=== PATIENT | male | born 1940 | race Caucasian/White ===

== ENCOUNTER 2016-11-08 01:57 | Emergency (ER) | payer MEDICARE, OTHER ==
[2016-11-08 01:57] LABS: BASOPHILS 0.5 %; BASOPHILS ABSOLUTE 0.06 10/3/uL (0.0-0.16); EOSINOPHILS 21.1 %; EOSINOPHILS ABSOLUTE 2.34 10/3/uL (0.0-0.53); ER CBC TAT 0 Hrs 03 Mins; HEMATOCRIT 44.1 % (40.0-51.0); HEMOGLOBIN 15.1 g/dL (13.6-17.8); IMMATURE GRANULOCYTES 1.1 %; LYMPHOCYTES 29.2 %; LYMPHOCYTES ABSOLUTE 3.23 10/3/uL (0.67-4.30); MEAN CORPUS HGB CONC 34.2 g/dL (32.0-36.0); MEAN CORPUSCULAR HEMOGLOB 30.9 pg (26.0-34.0); MEAN CORPUSCULAR VOLUME 90.2 fL (80-100); MEAN PLATELET VOLUME 9.6 fL (9.2-13.0); MONOCYTES 8.4 %; MONOCYTES ABSOLUTE 0.93 10/3/uL (0.21-1.20); NEUTROPHILS 39.7 %; NEUTROPHILS ABSOLUTE 4.39 10/3/uL (2.02-8.40); PLATELET COUNT 206 10/3/uL (150-400); RBC DISTRIBUTION WIDTH 12.9 % (12.0-16.0); RED CELL COUNT 4.89 10/6/uL (4.7-6.1); WHITE BLOOD CELLS 11.1 10/3/uL (4.5-10.5)
[~2016-11-08 01:57] MED LIST: ASAB PO; CELEXA40 MG PO; CLARIT10 PO; FISH-EPA1000 MG PO; HALF81 PO; MONODOX100 MG PO; PR25 PO; PRAV10 PO; PRILO PO; PRINZIDE1 TA1 PO; PROTONIX20 MG PO; PT UNABLE TO RECALL; RANITIDINE300 MG PO; SENTAB PO; SYMBICORT 160/41 INH INH; TAMBOCOR PO; TAMBOCOR150 MG PO; VENTOLIN HFA INH; VITC500 PO; ZESTORETIC PO; ZOCOR20 PO
[2016-11-08 01:58] LABS: IMMATURE GRANULOCYTES ABSOLUTE 0.12 10/3/uL (0.0-0.11); MANUAL DIFF NO %
[2016-11-08 02:06] LABS: INTERNATIONAL NORMAL RATI 1.1 UNITS (-); PARTIAL THROMBO TIME 40.9 SEC (22.5-37.2); PROTIME (NOT ORD) 13.6 SEC (12.0-14.5)
[2016-11-08 02:17] LABS: BAND NEUTROPHILS 2 %; EOSINOPHILS 12 %; EOSINOPHILS ABSOLUTE (CALC) 1.33 10/3/uL (0.0-0.53); ER DIFF TAT 0 Hrs 23 Mins; LYMPHOCYTES 30 %; LYMPHOCYTES ABSOLUTE (CALC) 3.33 10/3/uL (0.67-4.30); MONOCYTES 6 %; MONOCYTES ABSOLUTE (CALC) 0.67 10/3/uL (0.21-1.20); NEUTROPHILS ABSOLUTE (CALC) 5.77 10/3/uL (2.02-8.40); PLATELET ESTIMATE ADQ (ADEQUATE); SEGMENTED NEUTROPHIL (0) 50 %; SPHEROCYTES OCC (0-2/OIF); TEARDROP SHAPED RBCS OCC (0-2/OIF); TOTAL NUCLEATED CELLS 100
[2016-11-08 02:21] LABS: BUN (BLOOD UREA NITROGEN) 18 MG/DL (6-23); CALCIUM, SERUM 8.9 MG/DL (8.5-10.4); CHEST PAIN PROFILE TAT 0 Hrs 27 Mins; CHLORIDE, SERUM 104 MMOL/L (96-112); CO2 (CARBON DIOXIDE) 28 MMOL/L (24-34); CREATININE 1.01 MG/DL (0.70-1.30); GFR AFRICAN AMERICAN 85 ML/MIN (>=60); GFR NON AFRICAN AMERICAN 73 ML/MIN (>=60); GLUCOSE, SERUM 87 MG/DL (60-99); POTASSIUM, SERUM 3.7 MMOL/L (3.5-5.3); SODIUM, SERUM 144 MMOL/L (135-148); TROPONIN I <0.02 NG/ML (<0.05)
[2016-12-11] MEDS ORDERED: FLECAINIDE100 MG PO (13:41)
[2016-12-11] MEDS ORDERED: PRILO PO (13:45)
[2016-12-11] MEDS ORDERED: ASAB PO (13:46)
== END 2016-11-08 03:08 | disposition home or self-care (01) ==
LOC: ER 01:57
PROVIDERS: Specialist
DX: R00.8 Other abnormalities of heart beat (principal); I10 Essential (primary) hypertension; F32.9 Major depressive disorder, single episode, unspecified; Z85.46 Personal history of malignant neoplasm of prostate
CPT/HCPCS: 71010; 80048; 83735; 84443; 84484; 85025; 85610; 85730; 93005; 99285

== ENCOUNTER 2016-12-16 12:58 | Day surgery (SDC) | payer MEDICARE, OTHER ==
--- NOTE | ~2016-12-16 | EGD ---
EGD REPORT [facility] [address] [place] [address] NAME: DAVID JOE : [birth year] STATUS : REG [facility] [place] PAT#: [id number] AGE: 76 ADM/REG DATE : 12/16/16 MR#: [id number] REPORT SERV DATE: 12/16/16 DICTATED BY: JOYCE CHESTER DATE: 12/16/16 REPORT STATUS : Draft TRANSCRIBED BY: [facility] DATE: 12/16/16 [facility] Patient Name: David Joe Date of : 1940 Attending MD: JOYCE CHESTER MD Procedure Date No Time: 12/16/2016 Procedure: Colonoscopy Indications: Follow-up for history of adenomatous polyps in the colon, Follow-up of diverticulitis, Last colonoscopy: April 2012 Referring MD: MYNOR WILLARD MD Medicines: Propofol per Anesthesia Complications: No immediate complications. Estimated blood loss: None. Procedure: Pre-Anesthesia Assessment: - After reviewing the risks and benefits, the patient was deemed in satisfactory condition to undergo the procedure. - Prior to the procedure, a History and Physical was performed, and patient medications and allergies were reviewed. The patient's tolerance of previous anesthesia was also reviewed. The risks and benefits of the procedure and the sedation options and risks were discussed with the patient. All questions were answered, and informed consent was obtained. Prior Anticoagulants: The patient has taken no previous anticoagulant or antiplatelet agents. ASA Grade Assessment: III - A patient with severe systemic disease. After reviewing the risks and benefits, the patient was deemed in satisfactory condition to undergo the procedure. After I obtained informed consent, the scope was passed under direct vision. Throughout the procedure, the patient's blood pressure, pulse, and oxygen saturations were monitored continuously. The CF [id number] was introduced through the anus and advanced to the cecum, identified by appendiceal orifice and ileocecal valve. The colonoscopy was somewhat difficult due to significant looping. Successful completion of the procedure was aided by applying abdominal pressure. The ileocecal valve and appendiceal orifice were photographed. The patient tolerated the procedure well. The quality of the bowel preparation was adequate to identify polyps 6 mm and larger in size after copious lavage. The bowel preparation used was an extended prep with polyethylene glycol (PEG) and magnesium citrate. EGD REPORT [address] [address] NAME: DAVID JOE : [birth year] STATUS : REG [facility]#: [id number] AGE: 76 ADM/REG DATE : 12/16/16 MR#: [id number] REPORT SERV DATE: 12/16/16 DICTATED BY: JOYCE CHESTER DATE: 12/16/16 REPORT STATUS : Draft TRANSCRIBED BY: [employer] DATE: 12/16/16 Scope withdrawal time was nearly 8 minutes. Findings: The perianal and digital rectal examinations were normal. Pertinent negatives include normal sphincter tone. Non-bleeding internal hemorrhoids were found during retroflexion and were small and Grade I (internal hemorrhoids that do not prolapse). Multiple small-mouthed diverticula were found in the entire colon. Diffuse melanosis was found in the entire colon. A sessile polyp was found in the descending colon. The polyp was 6 mm in size. The polyp was removed with a cold snare. Resection and retrieval were complete. Estimated blood loss: none. The exam was otherwise without abnormality. Impression: - Non-bleeding internal hemorrhoids. - Moderate diverticulosis in the entire examined colon. - Melanosis in the colon. - One 6 mm polyp in the descending colon. Resected and retrieved. - The examination was otherwise normal. - Irritable bowel syndrome with constipation. Recommendation: - Discharge patient to home (ambulatory). - Resume previous diet. - Resume regular medications including Miralax. - Follow-up pathology. - Repeat colonoscopy for polyp surveillance in 5 years with an extended bowel prep. - Patient has a contact number available for emergencies. The signs and symptoms of potential delayed complications were discussed with the patient. Return to normal activities tomorrow. Written discharge instructions were provided to the patient. Procedure Code(s): --- Professional --- 52012, Colonoscopy, flexible, proximal to splenic flexure; with removal of tumor(s), polyp(s), or other lesion(s) by snare technique Diagnosis Code(s): --- Professional --- K64.0, First degree hemorrhoids K58.9, Irritable bowel syndrome without diarrhea K57.30, Diverticulosis of large intestine without perforation or abscess without bleeding K63.89, Other specified diseases of intestine D12.4, Benign neoplasm of descending colon Z86.010, Personal history of colonic polyps K57.32, Diverticulitis of large intestine without EGD REPORT [facility] [address] [address] NAME: DAVID JOE : [birth year] STATUS : REG [facility]#: [id number] AGE: 76 ADM/REG DATE : 12/16/16 MR#: [id number] REPORT SERV DATE: 12/16/16 DICTATED BY: JOYCE CHESTER DATE: 12/16/16 REPORT STATUS : Draft TRANSCRIBED BY: [employer] DATE: 12/16/16 perforation or abscess without bleeding CPT copyright 2013 [employer]. All rights reserved. The codes documented in this report are preliminary and upon housekeeper/laundry assistant review may be revised to meet current compliance requirements. JOYCE CHESTER MD 12/16/2016 3:24 PM This report has been signed electronically. Number of Addenda: 0 Note Initiated On: 12/16/2016 2:34 PM Scope Withdrawal Time 0 hours 8 minutes 2 seconds [address] [id number]
[~2016-12-16 12:58] MED LIST changes: +FLECAINIDE100 MG PO
== END 2016-12-16 23:59 | disposition home health service (06) ==
LOC: DMU 12:58
PROVIDERS: Internal Medicine Gastroenterology
PROC: 0DBM8ZZ Excision of Descending Colon, Via Natural or Artificial Opening Endoscopic (ICD-10-PCS; principal; 2016-12-16 14:30)
DX: D12.4 Benign neoplasm of descending colon (principal); K64.0 First degree hemorrhoids; K57.32 Diverticulitis of large intestine without perforation or abscess without bleeding; K58.9 Irritable bowel syndrome, unspecified; K63.89 Other specified diseases of intestine; M19.90 Unspecified osteoarthritis, unspecified site; F32.9 Major depressive disorder, single episode, unspecified; J45.909 Unspecified asthma, uncomplicated; K21.9 Gastro-esophageal reflux disease without esophagitis; I10 Essential (primary) hypertension; F41.9 Anxiety disorder, unspecified; F17.210 Nicotine dependence, cigarettes, uncomplicated; Z86.010 Personal history of colon polyps; Z79.899 Other long term (current) drug therapy; Z98.890 Other specified postprocedural states
CPT/HCPCS: 88305